=== PATIENT | male | born 1995 | race Caucasian/White ===

== ENCOUNTER 2023-07-31 01:35 | Emergency (ER) | payer OTHER, SELFPAY ==
[2023-07-31 01:40] VITALS: BP 156/130; PULSE 77; RESP 20; TEMP 37.1; O2SAT 99; BMI 38.0
--- NOTE | 2023-07-31 01:43 | ED.GENADULT ---
HPI - General Adult General Chief complaint: Laceration/Wound Stated complaint: Head lac Time Seen by Provider: 07/31/23 01:43 History of Present Illness HPI narrative: Pt arrives for evaluation of laceration of the back of his head. He states that he was bending down to pick something up while at work and hit his head on the fire suppression system. Bleeding controlled in triage. Denies any LOC. 28-year-old man presenting to the emergency department after striking his head and sustaining a laceration while at work. It bent over at work and coming back up struck his head on the pipes of fire suppression system. There is no loss of consciousness. Not having extreme pain just uncomfortable. Bleeding has been controlled. Related Data Home Medications ?Medication ?Instructions ?Recorded ?Confirmed valsartan 160 mg tablet 160 mg PO DAILY 07/31/23 07/31/23 Allergies Allergy/AdvReac Type Severity Reaction Status Date / Time No Known Drug Allergies Allergy Verified 07/31/23 01:40 Review of Systems Status of ROS: Reports: 6 or more systems reviewed and unremarkable except as noted in History and below [facility] Social History Non-prescribed substance use: denies use Exam Narrative: Exam Narrative: Breathing easily. Speaking fluidly. Moving all extremities without difficulty. In posterior scalp is 2.5 cm clean laceration. Dried blood in the area. Bleeds easily when manipulated. No deformity to the calvarium appreciated. Neck is supple. Cranial nerves 2-12 intact. Const: Vital Signs, click to edit/add: Vital Signs - 24 hr 07/31/23 01:40 Temperature 98.8 F Pulse Rate [Pulse Oximeter] 77 Respiratory Rate 20 Blood Pressure [Ri t Upper Arm] 156/130 H Pulse Oximetry 99 Documenting provider has reviewed patient's vital signs: yes Course Vital Signs Vital signs: Initial Vital Signs Temperature 98.8 F 07/31/23 01:40 Temperature Source Temporal Artery Scan 07/31/23 01:40 Pulse Rate 77 07/31/23 01:40 Pulse Rhythm Regular 07/31/23 01:40 Pulse Strength 3+ Normal 07/31/23 01:40 Respiratory Rate 20 07/31/23 01:40 Blood Pressure 156/130 H 07/31/23 01:40 Blood Pressure Mean 138 H 07/31/23 01:40 Pulse Oximetry 99 07/31/23 01:40 Vital Signs Temperature 98.8 F 07/31/23 01:40 Pulse Rate 77 07/31/23 01:40 Respiratory Rate 20 07/31/23 01:40 Blood Pressure 156/130 H 07/31/23 01:40 Pulse Oximetry 99 07/31/23 01:40 Temperature 98.8 F 07/31/23 01:40 Pulse Rate 77 07/31/23 01:40 Respiratory Rate 20 07/31/23 01:40 Blood Pressure 156/130 H 07/31/23 01:40 Pulse Oximetry 99 07/31/23 01:40 Medical Decision Making MDM Narrative Medical decision making narrative: Would benefit from repair. Discussed options. Cleansed with Shur-Clens solution. I placed yolanda without apparent complication. Good wound approximation and control of bleeding. I do not believe any imaging will be necessary by nexus criteria. Appears cognitively clear. I am not convinced has concussion but would monitor See patient discharge plan for further discussion Discharge Plan Discharge Clinical Impression: Laceration of scalp, Closed head injury Patient Disposition: Home w/ Parent or Adult Condition: Improved Additional Instructions: Can remove the yolanda in about 7 days. Okay to get wet and I would take a shower yet tonight/this morning. Avoid soaking your head otherwise for a longer period of time until yolanda are out. Signs or symptoms of a concussion might be nausea or headache upon exertion which can also be an indication to back off that level of activity and reassess in a week.? Concussion can also be represented by smoldering nausea or smoldering headache, difficulty with concentration, mood lability, general somnolence, sense of persistent fog or dizziness/lightheadedness.? If these symptoms are becoming apparent and continuing beyond 7-10 days, be re-evaluated for further recommendations. Prescriptions: No Action valsartan 160 mg tablet 160 mg PO DAILY Stand Alone Forms: [employer] Info Instructions
--- OUTSIDE RECORDS SUMMARY | 2023-07-31 02:05 | XMS_ITS | Clinical Summary ---
Author Organization [facility] Address [place], [place] [address] Care Team Providers Care Undercover Agent Name Role Phone Pcp, No Primary Care Provider Unavailabl e Allergies No known active allergies Medications Medication Sig Dispensed Refills Start Date End Date Status valsartan (DIOVAN) 160 mg tabletIndications:P rimary hypertension Take 1 Tablet (160 mg) by mouth once daily. 90 Tablet 3 07/13/2023 Active valsartan (DIOVAN) 40 mg tabletIndications:H TN (hypertension) Take 2 Tablets (80 mg) by mouth once daily. 90 Tablet 3 04/18/2023 07/13/2023 Discontinued (*Medication adjustment) Active Problems Problem Noted Date Diagnosed Date Primary hypertension 06/13/2023 Encounters Date Type Department Care Team Description 07/28/2023 3:15 PM CDT Orders Only [facility] [address] [place] [address] [place], [place] [facility] 07/28/2023 2:00 PM CDT Nurse/Clinic Staff Only [facility] [address] [place] [address] Blood Pressure (134/85) 07/28/2023 Travel 07/13/2023 Telephone [facility] [address] [place] [address] Aisha Petersen DO Blood Pressure 07/11/2023 9:10 AM CDT Nurse/Clinic Staff Only [facility] [address] [place] [address] Blood Pressure 07/11/2023 8:15 AM CDT Orders Only [facility] [address] [place] [address] Lab, [place] [facility] 07/11/2023 Travel 06/13/2023 7:15 AM CDT Office Visit [facility] [address] [place] [address] Aisha Petersen, Medication Management (Hypertension - valsartan ); Derm Problem (Some warts on face and fingers ) 06/13/2023 Travel from Last 3 Months Social History Tobacco Use Types Packs/Day Years Used Date Smoking Tobacco: Some Days Cigarettes Cigars Smokeless Tobacco: Never Tobacco Cessation:Ready to Q uit: No; Counseling Given: Yes Comments:Every once and a while uses a cigar, stopped smoking cigs in 2021 Alcohol Use Standard Drinks/Week Comments Not Currently 0 (1 standard drink = 0.6 oz pur e alcohol) Social Connections Answer Date Recorded Frequency of Communication with Friends and Fami ly 0 06/13/2023 Financial Resource Strain Answer Date R ecorded Difficulty of Paying Living Expenses 3 06/13/2023 Difficulty of Paying Living Expenses Not on file 06/13/2023 Food Insecurity Answer Date Recorded Worried About Running Out of Food in the Last Ye ar 1 06/13/2023 Transportation Needs Answer Date Record ed Lack of Transportation (Medical) 1 06/13/2023 Housing Stability Answer Date Recorded Unable to Pay for Housing in the Last Year 1 06/13/2023 Sex and Gender Information Value Date Recorded Sex Assigned at Not on file Gender Identity Not on file Sexual Orientation Not on file Obstetrics History Last Filed Vital Signs Vital Sign Reading Time Taken Comments Blood Pressure 134/85 07/28/2023 2:09 PM CDT Pulse 86 07/28/2023 2:09 PM CDT Temperature - - Respiratory Rate - - Oxygen Saturation 97% 07/28/2023 2:09 PM CDT Inhaled Oxygen Concentration - - Weight 115.7 kg (255 lb) 06/13/2023 7:30 AM CDT Height 175 cm (5' 8.9) 06/13/2023 7:30 AM CDT Body Mass Index 37.77 06/13/2023 7:30 AM CDT Plan of Treatment Health Maintenance Due Date Last Done Comments Pneumococcal series for age 6-64 (1 of 2 - PCV) 2000 Tdap 2005 Depression screening for age 12+ 2006 HIV for age 15-65 2009 Hepatitis C screening for age 18-79 2012 Tetanus booster 2014 COVID-19 vaccine series (2022-24 season) 2022 Influenza for age 9-49 10/15/2023 BMI (ht and wt on same day) for age 18+ 06/12/2024 0 06/13/2023, 04/03/2023 Procedures Procedure Name Priority Date/Time Associated Diagnosis Comments BASIC METABOLIC PANEL Routine 07/28/2023 2:20 PM CDT Primary hypertension BASIC METABOLIC PANEL Routine 07/11/2023 8:40 AM CDT Hypertension, unspecified type from Last 3 Months Results * (ABNORMAL) BASIC METABOLIC PANEL (07/28/2023 2:20 PM CDT) Only the most recent of2 resultswithin the time period is included. SODIUM 138 136 - 145 mmol/L 07/29/2023 1:07 AM [facility] POTASSIUM 4.0 3.5 - 5.1 mmol/L 07/29/2023 1:07 AM [facility] CHLORIDE 102 98 - 107 mmol/L 07/29/2023 1:07 AM [facility] CO2,TOTAL 22 22 - 29 mmol/L 07/29/2023 1:07 AM [facility] ANION GAP 14 5 - 18 07/29/2023 1:07 AM [facility] GLUCOSE 112(H) 70 - 99 mg/dL 07/29/2023 1:07 AM [facility] CALCIUM 9.4 8.6 - 10.0 mg/dL 07/29/2023 1:07 AM [facility] BUN 16 6 - 20 mg/dL 07/29/2023 1:07 AM [facility] CREATININE 0.98 0.70 - 1.20 mg/dL 07/29/2023 1:07 AM [facility] BUN/CREAT RATIO 16 10 - 20 4 1:07 AM CDT [facility] eGFR >90 >90 mL/min/1.7 3m2 07/29/2023 1:07 AM CDT [facility] Comment:As of 2021, eG FR is calculated by the CKD-EPI creatinine equation without race adjustment. ??eGFR can be influenced by muscle mass, exercise, and diet. ??The reported eGFR is an estimation only and is only applicable if the renal function is stable. Blood BLOOD SPECIMEN / Unknown Venipuncture / Unknown 07/28/2023 2:20 PM CDT 07/28/2023 2:21 PM CDT Aisha Petersen DO CHEMISTRY [facility] [address] [place] [address], [place] from Last 3 Months Care Teams Undercover Agent Relationship Specialty Start Date End Date Pcp, No . PCP - General 03/27/23
== END 2023-07-31 02:08 | disposition home or self-care (01) ==
LOC: ED 02:03
PROVIDERS: Emergency Provider Family Medicine; PCP Student in an Organized Health Care Education/Training Program
DX: S01.01XA Laceration without foreign body of scalp, initial encounter (principal); W22.8XXA Striking against or struck by other objects, initial encounter
CPT/HCPCS: 12001; 99283; 99284